=== PATIENT | male | born 1960 | race Caucasian/White ===

== ENCOUNTER 2017-06-14 11:08 | Observation (INO) | payer OTHER ==
--- NOTE | 2017-06-14 11:52 | EDPHY ---
H & P Stated Complaint: pt twisted/hurt back r lower tuesday lifting a lawn aerator - Personal History Current Tetanus/Diphtheria Vaccine: Yes - Medical/Surgical History Hx Asthma: No Hx Chronic Respiratory Disease: No Hx Diabetes: No Hx Cardiac Disease: No Hx Renal Disease: No Hx Cirrhosis: No Hx Alcoholism: No Hx HIV/AIDS: No Hx Splenectomy or Spleen Trauma: No Other PMH: r elbow surg - Social History Smoking Status: Never smoked Time Seen by Provider: 06/14/17 11:49 HPI/ROS: CHIEF COMPLAINT: Acute low back pain HISTORY OF PRESENT ILLNESS: 56-year-old male arrives via private vehicle with his complaining of acute right flank in paraspinous lumbar pain. This pain started the morning after he was lifting a lawn aerate her an air conditioner. At that time he fell no immediate pain. The pain has generally been intractable, pain reduced with oral Valium. No incontinence. No retention. No urinary abnormality. No radiation of symptoms. No abdominal pain. No rash or vesicles. No direct trauma or fall. No saddle anesthesia. No foot drop. No radiculopathy. PRIMARY CARE PROVIDER: Dr. Sheri Rico REVIEW OF SYSTEMS: A ten point review of systems was performed and is negative with the exception of the items mentioned in the HPI PAST MEDICAL & SURGICAL HISTORY: remote history of appendectomy, zoster SOCIAL HISTORY: nonsmoker. No IV drug use. . PHYSICAL EXAM (Prior to examination, patient consented to physical exam, hands were washed and my usual and customary physical exam procedures followed) 1) GENERAL: Well-developed, well-nourished, alert and oriented. Appears to be in no acute distress. 2) HEAD: Normocephalic, atraumatic 3) HEENT: Pupils equal, round, reactive to light bilaterally. Sclera anicteric. Nasopharynx, oropharynx, clear, no lesions. 4) NECK: Full range of motion, no meningeal signs. 5) LUNGS: Clear auscultation bilaterally, no wheezes, no rhonchi, no retractions. 6) HEART: Regular rate and rhythm, no murmur, no heave, no gallop. 7) ABDOMEN: No guarding, no rebound, no focal tenderness, negative McBurney's, negative Marquez's, negative Rovsing's, negative peritoneal sign, 8) MUSCULOSKELETAL: Moving all extremities, no focal areas of tenderness, no obvious trauma. No peripheral edema or discoloration. 9) BACK: tender to palpation paraspinous muscle. No CVA tenderness, no midline vertebral tenderness, no fluctuance, no step-off, no obvious trauma, no visual or palpable abnormality. Patella, Achilles reflexes intact to bilateral strength 5/5 10) SKIN: No rash, no petechiae. 11) NEURO: Awake, alert, and oriented to person, place and time. Answers questions appropriately. There were no obvious focal neurologic abnormalities. No cerebellar dysfunction. Normal steady gait. Upper and lower extremities bilaterally with strength 5 / 5, reflexes 2+.. DIFFERENTIAL DIAGNOSIS: In no particular order, including but not limited to, fracture, sprain/strain, cauda equina, spinal infectious etiology. (Ramona Mcconnell) Constitutional: Initial Vital Signs Temperature (C) 36.6 C 06/14/17 11:23 Heart Rate 58 L 06/14/17 11:23 Respiratory Rate 20 06/14/17 11:23 Blood Pressure 123/80 H 06/14/17 11:23 O2 Sat (%) 97 06/14/17 11:23 O2 Delivery Mode Nasal Cannula O2 (L/minute) 2 Allergies/Adverse Reactions: Sulfa (Sulfonamide Antibiotics) Allergy (Verified 06/14/17 11:23) penicilla Allergy (Uncoded 02/11/17 10:25) sulfa Allergy (Uncoded 02/11/17 10:25) Home Medications: Medication Instructions Recorded Diazepam [Valium 5 MG (*)] 5 mg PO DAILY PRN 06/14/17 Ibuprofen [Motrin (*)] 200 - 600 mg PO DAILY PRN 06/14/17 Multivitamins [Multivitamin (*)] 1 each PO DAILY 06/14/17 Medical Decision Making - Diagnostics Imaging Results: Imaging Impressions Abdomen/Pelvis CT 06/14/17 12:27 Impression: 3.5 mm calculus in the bladder side of the right ureterovesical junction indicating a recently passed stone with moderate right hydronephrosis and hydroureter. There is also nonobstructive nephrolithiasis right kidney. Results called and discussed with Ramona Mcconnell PA-C, at 1323 hours 2016. Attention: This CT examination is specifically designed to evaluate patients who are clinically suspected of having acute obstructive uropathy. This examination does not use radiographic contrast, and as such, provides only a limited evaluation of the abdomen, pelvis and retroperitoneum. If there is further clinical suspicion for pathologic conditions other than obstructive uropathy, a complete CT evaluation of the abdomen and pelvis utilizing intravenous, oral, and rectal contrast should be considered. ED Course/Re-evaluation: 17:[address] Woodall, radiologist. CT shows sacral spine cyst, multiple disc herniations in the lumbar spine. Plan to admit for intractable pain. 17:[address] Suarez. He accepts admission. Spoke with the physician's primary teaching assistant for Dr. Chen. He will consult in the hospital. (Reji Morgan) Care of patient under supervision of secondary supervising physician Dr Morgan. MRI was obtained. Pain control has been challenging in this patient. Care the patient transferred to Dr. Morgan at 5:00 p.m.. (Ramona Mcconnell Malu) - Data Points Laboratory Results: Laboratory Results 06/14/17 13:00 06/14/17 13:00 Medications Given: Discontinued Medications Acetaminophen (Tylenol) 1,000 mg PO TID CARLOS Stop: 12/11/17 21:59 Last Admin: 06/15/17 09:03 Dose: Not Given Diazepam (Valium) 5 mg PO EDNOW ONE Stop: 06/14/17 12:29 Last Admin: 06/14/17 12:53 Dose: 5 mg Fentanyl (Sublimaze) 50 mcg IVP EDNOW ONE Stop: 06/14/17 13:34 Last Admin: 06/14/17 13:52 Dose: 50 mcg Hydromorphone HCl (Dilaudid) 1 mg IVP EDNOW ONE Stop: 06/14/17 14:05 Last Admin: 06/14/17 14:10 Dose: 1 mg Hydromorphone HCl (Dilaudid) 1 mg IVP EDNOW ONE Stop: 06/14/17 15:06 Last Admin: 06/14/17 15:18 Dose: 1 mg Hydromorphone HCl (Dilaudid) 1 mg IVP EDNOW ONE Stop: 06/14/17 17:04 Last Admin: 06/14/17 17:07 Dose: 1 mg Ondansetron HCl (Zofran) 4 mg IVP EDNOW ONE Stop: 06/14/17 17:44 Last Admin: 06/14/17 17:46 Dose: 4 mg Departure - Departure Disposition: [facility] Inpatient Acute Clinical Impression: Intractable pain, Sacral spine cyst Condition: Good
[2017-06-14] MEDS ORDERED: DIAZEPAM 5 MG TAB PO ONE (12:28)
[2017-06-14 13:13] LABS: % IMMATURE GRANULYOCYTES 0.3 % (0.0-1.1); ABSOLUTE IMMATURE GRANULOCYTES 0.03 10^3/uL (0.00-0.10); ADD DIFF? NO; ADD MORPH? NO; ADD SCAN? NO; ATYPICAL LYMPHOCYTE FLAG 0 (0-99); FRAGMENT RBC FLAG 0 (0-99); HEMATOCRIT 46.2 % (40.0-51.0); HEMOGLOBIN 16.5 g/dL (13.7-17.5); LEFT SHIFT FLG 0 (0-99); LIPEMIA HEMOLYSIS FLAG 90 (0-99); MEAN CELL HEMOGLOBIN 30.1 pg (27.9-34.1); MEAN CELL HEMOGLOBIN CONCENTR. 35.7 g/dL (32.4-36.7); MEAN CELL VOLUME 84.2 fL (81.5-99.8); MEAN PLATELET VOLUME 10.2 fL (8.7-11.7); PLATELET CLUMPS FLAG 0 (0-99); PLATELET COUNT 202 10^3/uL (150-400); RED BLOOD CELL COUNT 5.49 10^6/uL (4.40-6.38); RED CELL DISTRIBUTION WIDTH 12.5 % (11.5-15.2)
[2017-06-14 13:33] LABS: COLOR YELLOW; LEUKOCYTE ESTERASE,URINE NEGATIVE (NEGATIVE); NITRITE,URINE NEGATIVE (NEGATIVE)
[2017-06-14 13:33] LABS: ALANINE AMINOTRANSFERASE 44 IU/L (21-72); ALBUMIN 4.2 g/dL (3.5-5.0); ALKALINE PHOSPHATASE 70 IU/L (38-126); ANION GAP 11 mEq/L (8-16); ASPARTATE AMINOTRANSFERASE 32 IU/L (17-59); BILIRUBIN,TOTAL 0.9 mg/dL (0.1-1.4); BILIRUBIN-CONJUGATED 0.3 mg/dL (0.0-0.5); BILIRUBIN-UNCONJUGATED 0.6 mg/dL (0.0-1.1); CALCIUM 9.5 mg/dL (8.5-10.4); CARBON DIOXIDE 23 mEq/l (22-31); CHLORIDE 105 mEq/L (97-110); CREATININE 1.1 mg/dL (0.7-1.3); GLOMERULAR FILTRATION RATE > 60; GLUCOSE 82 mg/dL (70-100); POTASSIUM 4.7 mEq/L (3.5-5.2); SODIUM 139 mEq/L (134-144); TOTAL PROTEIN 7.6 g/dL (6.3-8.2)
[2017-06-14] MEDS ORDERED: fentaNYL 100 MCG/2 ML INJ IVP ONE (13:33)
[2017-06-14 13:34] LABS: MUCUS TRACE /lpf (NONE-1+); RBC,URINE 25-50 /hpf (0-3)
[2017-06-14] MEDS ORDERED: HYDROmorphONE/DILAUDID 1 MG/ML INJ IVP ONE ×3 (14:04→17:03)
[2017-06-14] MEDS ORDERED: GADOBUTROL 10 ML VIAL IVP ONE (16:02)
[2017-06-14] MEDS ORDERED: ONDANSETRON 4 MG/2 ML VIAL IVP ONE (17:43)
[2017-06-14] MEDS ORDERED: ONDANSETRON 4 MG/2 ML VIAL ONE (17:44)
[2017-06-14] MEDS ORDERED: HYDROmorphONE/DILAUDID 6 MG/30 ML PCA IV PRN ×2 (18:12→20:25)
[2017-06-14] MEDS ORDERED: NALOXONE HCL 0.4 MG/ML INJ IVP PRN ×2 (18:12→20:25)
[2017-06-14] MEDS ORDERED: DIAZEPAM 10 MG/2 ML SYR IVP PRN (18:13)
[2017-06-14] MEDS ORDERED: ACETAMINOPHEN 325 MG TAB PO PRN (18:14)
[2017-06-14] MEDS ORDERED: ONDANSETRON DISINTEGRATING 4 MG TAB PO PRN (18:14)
[2017-06-14] MEDS ORDERED: ONDANSETRON 4 MG/2 ML VIAL IVP PRN (18:14)
--- NOTE | 2017-06-14 18:49 | GHP ---
[f rep st] HISTORY AND PHYSICAL DATE OF ADMISSION: 06/14/2017 CHIEF COMPLAINT: Back pain. HISTORY OF PRESENT ILLNESS: This is a 56-year-old man, who has about a 2-month history of low back p ain. He has no lower extremity weakness, no numbness, no difficulty with urination. He actually has an appointment to see Dr. Jean Baptiste tomorrow. On Tuesday, however, he was carrying an air conditioner and fe ll. He did not really have any back pain after that. He then picked up another air conditioner, alejandroolena ch was 50 or 60 pounds, and carried that. He felt fine afterwards. Tuesday morning he woke up in ext deedee pain. He took significant Advil and Tylenol, this did not help. He had some Valium from a prev ious surgery, which he took, which did help the pain slightly. Pain got worse and, thus, he presente d to the ED today. PAST MEDICAL/SURGICAL HISTORY: 1. Elbow surgery. 2. Zoster. 3. Appendectomy. MEDICATIONS: Please see medication reconciliation. ALLERGIES: Sulfa and penicillin. FAMILY HISTORY: No spinal tumors. SOCIAL HISTORY: Lives with his . Rarely drinks. Does not smoke. REVIEW OF SYSTEMS: A 10-point review of systems is conducted and is negative except per HPI. PHYSICAL EXAMINATION: VITAL SIGNS: Blood pressure 118/78, heart rate 58, respiration rate 18, satur ating 97% on 2 L. GENERAL: The patient is a pleasant man, who is resting comfortably in bed, in no acute distress. HEENT: Shows him to be normocephalic, atraumatic. CARDIOVASCULAR: Regular rate an d rhythm. No murmurs, rubs, or gallops. PULMONARY: Shows lungs clear to auscultation bilaterally. ABDOMEN: Soft, nontender, nondistended. SKIN: Shows no rash. : Shows no Villatoro. NEUROLOGIC: Shows him to be alert and oriented x3. Cranial nerves 2-12 are intact. Strength is 5/5 in his upper and lower extremities. Sensation to light touch is intact in his upper and lower extremities. PSYC HIATRIC: Shows a normal mood and affect. LABORATORY DATA: CBC is normal. Basic metabolic panel and LFTs are normal. Urinalysis shows a smal l amount of blood. DATA: 1. I discussed this with Dr. Morgan in the ED. 2. Abdominal and pelvic CT shows a stone in his bladder with moderate right hydronephrosis and right hydroureter. He has nonobstructive left-sided nephrolithiasis. 3. Lumbar spine MRI shows a benign-appearing cystic osseous lesion in the left sacral ala, S1, multi ple-level degenerative disk disease. No diskitis or osteomyelitis. IMPRESSION AND PLAN: A 56-year-old man who presents with back pain, a bony cystic lesion, right hydr onephrosis and hydroureter. 1. Back pain: Unclear if this is muscle spasm, related to his hydronephrosis. I do not think it is related to the bony cyst that was identified. We will treat him with patient-controlled anesthesia, as well as Valium, schedule Tylenol. 2. Osseous cystic lesion: Neurosurgery is consulted. This will need to be biopsied. They are purs uing a CT scan of the lumbar spine to get a better look at the bones overall. He is neurologically i ntact. 3. Right hydronephrosis and hydroureter: Appears as though he has passed a stone. He would need to have this followed as an outpatient if his pain resolves. If not, could consider ultrasound to foll ow his right kidney. /[id number]/MODL
[2017-06-14] MEDS: ACETAMINOPHEN 500 MG TAB PO SCH (22:25)
[2017-06-15 05:25] LABS: % IMMATURE GRANULYOCYTES 0.3 % (0.0-1.1); ABSOLUTE IMMATURE GRANULOCYTES 0.02 10^3/uL (0.00-0.10); ADD DIFF? NO; ADD MORPH? NO; ADD SCAN? NO; ATYPICAL LYMPHOCYTE FLAG 0 (0-99); FRAGMENT RBC FLAG 0 (0-99); HEMATOCRIT 43.4 % (40.0-51.0); HEMOGLOBIN 15.4 g/dL (13.7-17.5); LEFT SHIFT FLG 0 (0-99); LIPEMIA HEMOLYSIS FLAG 90 (0-99); MEAN CELL HEMOGLOBIN CONCENTR. 35.5 g/dL (32.4-36.7); MEAN CELL VOLUME 84.6 fL (81.5-99.8); MEAN PLATELET VOLUME 10.5 fL (8.7-11.7); PLATELET CLUMPS FLAG 10 (0-99); PLATELET COUNT 168 10^3/uL (150-400); RED BLOOD CELL COUNT 5.13 10^6/uL (4.40-6.38); RED CELL DISTRIBUTION WIDTH 12.2 % (11.5-15.2)
--- NOTE | 2017-06-15 05:36 | GCON ---
[f rep st] CONSULTATION EMERGENCY ROOM CONSULTATION DATE OF CONSULTATION: 06/14/2017 CHIEF COMPLAINT: Severe right lower back pain. HISTORY OF PRESENT ILLNESS: Patient is a 56-year-old gentleman, who presented to the emergency room with a 2-month history of lower back pain. Two days ago he was lifting an aerator and has experienced severe right lower back pain since. He denies any radicular symptoms. He denies any weakness, and he denies any saddle anesthesia or numbness. He denies any bowel or bladder issues other than trouble urinating due to pain. He has taken ibuprofen without any relief. He had some Valium from a previous arm surgery, which he took 5 mg, which did decrease the severity of his pain slightly. PAST MEDICAL HISTORY: Patient has a history of left ear shingles in 2016. PAST SURGICAL HISTORY: Elbow surgery and appendectomy. MEDICATIONS: Patient does not take any medicines on a regular basis. ALLERGIES: Patient is allergic to sulfa and penicillin. FAMILY HISTORY: Patient states that both his mother and father when he was a young age. His mother during surgery for removing of a cyst on her neck, which was believed to be due to anesthesia complication. Patient denies ever having anesthesia complication. SOCIAL HISTORY: Patient lives with his . He drinks approximately 1/2 of a beer 3-4 times per week. He does not smoke cigarettes. He does not do drugs. REVIEW OF SYSTEMS: Ten-point review of systems was reviewed and negative aside for what was mentioned in HPI. PHYSICAL EXAMINATION: VITAL SIGNS: Blood pressure is 118/78, heart rate is 58 , respiratory rate is 18, oxygen saturations 97% on 2 L nasal cannula, temperature is 36.6 degrees Celsius. HEENT: Head is normocephalic and atraumatic. Pupils are equal, round, and reactive to light. EOMI is intact. Full visual patel by confrontation. Ears are patent. Nose is patent. RESPIRATORY: Deferred. CARDIAC: Deferred. ABDOMEN: Soft and nontender. GENITOURINARY: Deferred. RECTAL: Deferred. NEUROLOGIC: Patient is awake and alert and oriented to name, place, location, date, time, and situation. His memory is intact to immediate, past, and current events. Speech shows no aphasia or dysphonia. Cranial nerves 2-12 are grossly intact. Motor: Patient has 5/5 strength in all muscle groups in bilateral upper and lower extremities to include deltoids, biceps, triceps, brachioradialis, wrist flexion and extension, service observer, intrinsic fingers, iliopsoas, quadriceps, hamstrings, plantar flexion, dorsiflexion, EHL testing. Sensation is grossly intact to light touch throughout all dermatomal distributions in bilateral lower extremities. Patient has a negative straight leg raise. Negative GLORIA test. Reflexes: Biceps, triceps, brachioradialis, knee jerk, and ankle jerk are 2+ out of 4. Toes are downgoing bilaterally. Darshan sign is negative. Babinski is negative, and there is no evidence of clonus. LABORATORY DATA: White blood cells are 9.29, hemoglobin 16.5, hematocrit 46.2, platelets are 202. DIAGNOSTICS: CT scan of the abdomen and pelvis without contrast demonstrated a 2.5 mm calculus in the bladder side of the right ureter, which could indicate a recently passed kidney stone. MRI of the lumbar spine demonstrates a benign- appearing cystic osseous lesion involving the left sacral S1 region measuring 4 x 3 x 3.7 cm. Patient also has multilevel okrh-yl-tihohufr degenerative disk disease from T11 through S1 with small central disk herniations noted at T12-L1 , L1-2 L2-L3, L3-L4, and L4-L5 levels. ASSESSMENT AND PLAN: Patient is a 56-year-old male presenting to the emergency room with severe right lower back pain. MRI of the lumbar spine was found to have a benign-appearing osseous lesion in the left S1 sacral region. It is unlikely that this lesion is contributing to his right lower back pain. We will order a biopsy of this mass to further evaluate. Patient has multi-level degeneration of his lumbar.Patient is being admitted to the medicine team for pain control in the hospital. Of note, the patient was scheduled to see Dr. Kumar in the office for his lower back pain tomorrow June 15. We will follow him in the hospital and follow the evaluation of his biopsy results. Patient was seen and examined in the Emergency Department at 1745 on 06/14/[address] Andino. /[id number]/MODL MTDD
[2017-06-15 05:37] LABS: ALANINE AMINOTRANSFERASE 40 IU/L (21-72); ALBUMIN 3.5 g/dL (3.5-5.0); ALKALINE PHOSPHATASE 60 IU/L (38-126); ANION GAP 10 mEq/L (8-16); ASPARTATE AMINOTRANSFERASE 23 IU/L (17-59); BILIRUBIN,TOTAL 1.1 mg/dL (0.1-1.4); CALCIUM 8.9 mg/dL (8.5-10.4); CARBON DIOXIDE 24 mEq/l (22-31); CHLORIDE 106 mEq/L (97-110); CREATININE 1.1 mg/dL (0.7-1.3); GLOMERULAR FILTRATION RATE > 60; GLUCOSE 85 mg/dL (70-100); POTASSIUM 4.1 mEq/L (3.5-5.2); SODIUM 140 mEq/L (134-144); TOTAL PROTEIN 6.4 g/dL (6.3-8.2)
[2017-06-15 07:57] VITALS: RESP 18
--- NOTE | 2017-06-15 08:08 | NEUSURGPN ---
Assessment/Plan: 56 yr old with right low back pain, incidental left sacral mass seen on lumbar MRI Plan: -Patient pain improved overnight, did not require pain medications -Lumbar MRI has multi-level degenerative disease, could contribute to right low back pain, kidney stone could also contribute to back pain -Patient and are interested in further evaluation renal stones if indicated , will defer to Medicine for work up -Sacral mass was scheduled for biopsy this morning, will cancel this. Possibility of mass being Chrondroma, patient will obtain images on CD and travel to Dr Radha Sarmiento at [facility] for an opinion on treatment plan. -Patient my discharge from neurosurgery standpoint and follow up in office Patient was seen by Dr Kumar as well and plan was fully discussed Subjective: Patient pain improved this am, has not ambulated yet Objective: AxO x3 PERRLA EOMI 5/5 BLE, BUE Sensation intact to light touch BLE Neuro Check Frequency: per routine Urinary Catheter in Place: No - Physician Discussed Patient with Dr.: Andino Patient Seen by : José Neurosurgery Physical Exam - Vitals, I&O, Labs I and O 06/14/17 06/15/17 06/16/17 05:59 05:59 05:59 Intake Total 0 300 Output Total 700 Balance 0 -400 Weight 90.718 kg Intake: Oral (ml) 300 IV Infused (ml) 0 HYDROmorphone HCL See 0 Protocol IV PRN PRN Rx#: [id number] Output: Urine (ml) 700 Urinal 700 Vital Signs Temp Pulse Resp BP Pulse Ox 36.7 C 59 L 18 109/75 96 06/15/17 07:55 06/15/17 07:55 06/15/17 07:55 06/15/17 07:55 06/15/17 07:55 Laboratory Results 06/15/17 05:02 06/15/17 05:02 ICD10 Worksheet Patient Problems: Problems Problem Status Onset Intractable pain Acute
[2017-06-15] MEDS: ACETAMINOPHEN 500 MG TAB PO SCH (09:03)
[2017-06-15 12:23] VITALS: BP 109/67; PULSE 64; TEMP 98.6; O2SAT 93
--- NOTE | 2017-06-15 13:44 | PDDCSUM ---
Discharge Summary Discharge Summary: DISCHARGE DIAGNOSES: -acute right-sided kidney stone with hydronephrosis and renal colic, past history of kidney stones of unknown nature -osseous cystic lesion of the sacral Ala, unknown etiology incidentally identified radiologically CONSULTANTS: Dr. Ulises Kumar PROCEDURES: CT scan of abdomen pelvis MRI scan of lumbosacral spine HOSPITAL COURSE SUMMARY: This patient presented with acute typical renal colic on the right side was found to have right-sided hydronephrosis and a 3.5 cm stone in his bladder along with a 2 mm stone in the inferior pole the right kidney. His pain did resolve around the time that he had his CT done. He is presumed to have passed the stone in his bladder yesterday. There were no fevers no other signs of infection. He at this time is eating well and up walking around feeling comfortable. He is stable for discharge to home. He has 1 previous kidney stone which he did not find and so it was never analyzed. It is recommended at this time that he have vigorous daily hydration as well as a low oxalate diet. He is given a urine strainer to see if he can catch his stone for analysis. It is recommended to have follow-up with his primary care physician or other urologists to make sure that his hydroureter does resolve. Incidentally identified on his CT scan in the ER was a cystic lesion in the sacral alae on the right side. This is of uncertain etiology and significance at this time. He was seen by Dr. Kumar who recommended consideration of possible biopsy but is recommended that the patient seek out a 2nd opinion at the [facility] and the patient is given the name of the surgeon to follow up with therapy. The patient understands this and agrees on this plan PENDING TEST RESULTS: None MEDICATION CHANGES: None FOLLOW-UP PLAN: With primary care physician With Dr. Liana Sarmiento at [facility] Greater than 35 minutes bedside and care coordination time today
--- NOTE | 2017-06-15 16:03 | ASDISCHSUM ---
Discharge Information Plan Status: Medically Cleared to Leave: Discharge Date:06/15/2017 02:11 PM CM D/C Disposition: ADT D/C Disposition:Home, Routine, Self-Care Projected Discharge Date:06/15/2017 02:11 PM Transportation at D/C: Discharge Delay Reason: Follow-Up Date:06/15/2017 02:11 PM Discharge Slot: Final Diagnosis: Placement Information Patient Contact Information Contact Name:RACHAEL Relationship: Address:[address] City:[place] Alternate Phone: State/Zip Code:[place] [address] Email: Financial Information Financial Class:HMO and PPO Plans Primary Plan Desc:[facility] Primary Plan Number:[id number] Secondary Plan Desc: Secondary Plan Number: Assessment Information Intervention Information
== END 2017-06-15 14:11 | disposition home or self-care (01) ==
LOC: F1N 17:25
PROVIDERS: ADMIT Student in an Organized Health Care Education/Training Program; ATTEND Internal Medicine
DX: S39.012A Strain of muscle, fascia and tendon of lower back, initial encounter (principal); X50.0XXA Overexertion from strenuous movement or load, initial encounter; Y92.009 Unspecified place in unspecified non-institutional (private) residence as the place of occurrence of the external cause; Y93.H9 Activity, other involving exterior property and land maintenance, building and construction; G96.19 Other disorders of meninges, not elsewhere classified; M51.26 Other intervertebral disc displacement, lumbar region; N20.0 Calculus of kidney
CPT/HCPCS: 72158; 74176; 96374; 96375; 96376; 99285; G0378; A9585; J1170; J2405; J3010

== ENCOUNTER 2017-06-16 08:48 | Emergency (ER) | payer OTHER ==
[2017-06-16 08:54] VITALS: TEMP 97.9
[2017-06-16] MEDS ORDERED: KETOROLAC 30 MG/1 ML SDV IVP ONE (09:16)
--- NOTE | 2017-06-16 09:16 | EDPHY ---
HPI/HX/ROS/PE/MDM Narrative: CHIEF COMPLAINT: Right flank pain HPI: The patient is a 56 y/o male arriving with his complaining of severe right flank pain. He was admitted 2 days ago for the same pain and a CT revealed a stone in his bladder and moderate right hydronephrosis and hydroureter. He was discharged home yesterday after his pain subsided. This morning he stood and "got a stitch in my side," which then progressed to the same severe pain as two days ago. He has been taking some old Valium with only slight alleviation. No change with positioning. He does have a history of chronic low back pain, but states this feels much different. REVIEW OF SYSTEMS: Aside from elements discussed in the HPI, a comprehensive 10-point review of systems was reviewed and is negative. PMH: Elbow surgery, zoster, appendectomy, lower back pain and cystic osseous lesion SOCIAL HISTORY: Lives with . Rare alcohol. Nonsmoker. PHYSICAL EXAM: General:Patient is alert, in no acute distress. ENT:Eyes are normal to inspection. ENT inspection normal. Neck: Normal inspection. Full range of motion. Respiratory:No respiratory distress. Breath sounds normal bilaterally. Cardiovascular: Regular rate and rhythm. Strong peripheral pulses. Normal cap refill. Abdomen:The abdomen is nontender to palpation. There are no peritoneal signs. Back: Normal to inspection. Right CVA tenderness to palpation. Skin: Normal color. No rash. Warm and dry. Extremities: Normal appearance. Full range of motion. Neuro: Oriented x3. Normal motor function. Normal sensory function. ED Course: This is a 56 y/o male with a history of chronic back pain and recent kidney stone who presents with returning left flank pain this morning. His pain feels exactly the same as his stone from 2 days ago. He says he was not discharged with pain medications and has only been taking Valium for pain. He has left CVA tenderness on exam. Plan for IV, labs, and symptom management. 30mg IV Toradol administered. 1020: Reassessed patient. We discussed repeating the CT study to evaluate for another stone or other cause of his symptoms. He has decided to repeat the study. CT shows the distal ureteral stone has not moved from 2 days ago. Consulted with Dr. Barreto, urology. He does not recommend any intervention at this time. Discussed this recommendation with the patient. MDM: This patient presents with recurrent pain likely secondary to hydronephrosis/ kidney stone. Repeat CT shows continued active stone at the UVJ. Patient's pain well-controlled with IV Toradol. They feel comfortable going home with strict return precautions. - Data Points Imaging Results: Imaging Impressions Abdomen/Pelvis CT 06/16/17 10:20 Impression: 1. Stable lower pole right nephrolithiasis. 2. Persistent moderate right hydroureteronephrosis with a 3.5 mm calculus seen in the posterior right aspect of the urinary bladder, slightly more distant from the ureterovesical junction than on the study of 06/14/2017. 3. Status post appendectomy. Attention: This CT examination is specifically designed to evaluate patients who are clinically suspected of having acute obstructive uropathy. This examination does not use radiographic contrast, and as such, provides only a limited evaluation of the abdomen, pelvis, and retroperitoneum. If there is further clinical suspicion for pathological conditions other than obstructive uropathy, a complete CT evaluation of the abdomen and pelvis utilizing intravenous, oral, and rectal contrast should be considered. Findings were discussed with Chico Platt MD at 10:59, on 06/16/2017. Imaging: Discussed imaging studies w/ call center agent Radiologist, I viewed and interpreted images myself Laboratory Results: Laboratory Results 06/16/17 09:05 06/16/17 09:05 06/16/17 06/16/17 09:05 09:05 WBC 10.54 10^3/uL H 10^3/uL (3.80-9.50) RBC 5.67 10^6/uL 10^6/uL (4.40-6.38) Hgb 17.3 g/dL g/dL (13.7-17.5) Hct 48.3 % % (40.0-51.0) MCV 85.2 fL fL (81.5-99.8) MCH 30.5 pg pg (27.9-34.1) MCHC 35.8 g/dL g/dL (32.4-36.7) RDW 12.3 % % (11.5-15.2) Plt Count 201 10^3/uL 10^3/uL (150-400) MPV 10.9 fL fL (8.7-11.7) Neut % (Auto) 79.1 % H % (39.3-74.2) Lymph % (Auto) 10.7 % L % (15.0-45.0) [place] % (Auto) 8.3 % % (4.5-13.0) Eos % (Auto) 1.2 % % (0.6-7.6) Baso % (Auto) 0.4 % % (0.3-1.7) Nucleat RBC Rel Count 0.0 % % (0.0-0.2) Absolute Neuts (auto) 8.34 10^3/uL H 10^3/uL (1.70-6.50) Absolute Lymphs (auto) 1.13 10^3/uL 10^3/uL (1.00-3.00) Absolute Monos (auto) 0.87 10^3/uL H 10^3/uL (0.30-0.80) Absolute Eos (auto) 0.13 10^3/uL 10^3/uL (0.03-0.40) Absolute Basos (auto) 0.04 10^3/uL 10^3/uL (0.02-0.10) Absolute Nucleated RBC 0.00 10^3/uL 10^3/uL (0-0.01) Immature Gran % 0.3 % % (0.0-1.1) Immature Gran # 0.03 10^3/uL 10^3/uL (0.00-0.10) Sodium 140 mEq/L mEq/L (134-144) Potassium 4.3 mEq/L mEq/L (3.5-5.2) Chloride 103 mEq/L mEq/L (97-110) Carbon Dioxide 26 mEq/l mEq/l (22-31) Anion Gap 11 mEq/L mEq/L (8-16) BUN 16 mg/dL mg/dL (7-23) Creatinine 1.2 mg/dL mg/dL (0.7-1.3) Estimated GFR > 60 Glucose 83 mg/dL mg/dL (70-100) Calcium 9.7 mg/dL mg/dL (8.5-10.4) Medications Given: Discontinued Medications Ketorolac Tromethamine (Toradol) 30 mg IVP EDNOW ONE Stop: 06/16/17 09:17 Last Admin: 06/16/17 09:41 Dose: 30 mg General Initial Vital Signs: Initial Vital Signs Temperature (C) 36.6 C 06/16/17 08:52 Heart Rate 68 06/16/17 08:52 Respiratory Rate 18 06/16/17 08:52 Blood Pressure 113/74 06/16/17 08:52 O2 Sat (%) 95 06/16/17 08:52 O2 Delivery Mode Room Air Allergies/Adverse Reactions: Sulfa (Sulfonamide Antibiotics) Allergy (Verified 06/16/17 08:51) penicilla Allergy (Uncoded 02/11/17 10:25) sulfa Allergy (Uncoded 02/11/17 10:25) Home Medications: Medication Instructions Recorded Diazepam [Valium 5 MG (*)] 5 mg PO DAILY PRN 06/14/17 Ibuprofen [Motrin (*)] 200 - 600 mg PO DAILY PRN 06/14/17 Multivitamins [Multivitamin (*)] 1 each PO DAILY 06/14/17 Ketorolac Tromethamine [Toradol] 10 mg PO Q6H #16 tab 06/16/17 Ondansetron Odt [Zofran Odt] 4 mg PO Q4PRN PRN #10 tab 06/16/17 Tamsulosin HCl [Flomax] 0.4 mg PO DAILY #10 cap 06/16/17 oxyCODONE/APAP 5/325 [Percocet 1 - 2 tab PO Q4H PRN #10 tab 06/16/17 5/325] Departure - Departure Disposition: Home, Routine, Self-Care Clinical Impression: Kidney stone Condition: Good Instructions: Kidney Stones (ED) Additional Instructions: 1. Take Toradol as prescribed. 2. Percocet as needed for severe pain 3. Use Flomax as prescribed. 4. Strain urine as directed 5. Return to the Emergency Department for intractable pain, fever or vomiting 6. Please contact the urologist you have been referred to schedule a follow-up visit. Referrals: Sheri Rico MD [Primary Care Provider] - As per Instructions Pablo Barreto MD [Medical Doctor] - As per Instructions Prescriptions: Ketorolac Tromethamine [Toradol] 10 mg PO Q6H #16 tab Ondansetron Odt [Zofran Odt] 4 mg PO Q4PRN PRN #10 tab PRN Reason: Nausea oxyCODONE/APAP 5/325 [Percocet 5/325] 1 - 2 tab PO Q4H PRN #10 tab PRN Reason: Pain, Severe Tamsulosin HCl [Flomax] 0.4 mg PO DAILY #10 cap Report Scribed for: Chico Platt Report Scribed by: Dilma Caro Date of Report: 06/16/17 Time of Report: 09:00 Physician Review and Approval Statement: Portions of this note were transcribed by an ED scribe. I personally performed the history, physical exam, and medical decision making; and confirm the accuracy of the information in the transcribed note.
[2017-06-16 10:00] LABS: % IMMATURE GRANULYOCYTES 0.3 % (0.0-1.1); ABSOLUTE IMMATURE GRANULOCYTES 0.03 10^3/uL (0.00-0.10); ADD DIFF? NO; ADD MORPH? NO; ADD SCAN? NO; ATYPICAL LYMPHOCYTE FLAG 10 (0-99); FRAGMENT RBC FLAG 0 (0-99); HEMATOCRIT 48.3 % (40.0-51.0); HEMOGLOBIN 17.3 g/dL (13.7-17.5); LEFT SHIFT FLG 0 (0-99); LIPEMIA HEMOLYSIS FLAG 90 (0-99); MEAN CELL HEMOGLOBIN 30.5 pg (27.9-34.1); MEAN CELL HEMOGLOBIN CONCENTR. 35.8 g/dL (32.4-36.7); MEAN CELL VOLUME 85.2 fL (81.5-99.8); MEAN PLATELET VOLUME 10.9 fL (8.7-11.7); PLATELET CLUMPS FLAG 0 (0-99); PLATELET COUNT 201 10^3/uL (150-400); RED BLOOD CELL COUNT 5.67 10^6/uL (4.40-6.38); RED CELL DISTRIBUTION WIDTH 12.3 % (11.5-15.2)
[2017-06-16 10:07] LABS: ANION GAP 11 mEq/L (8-16); CALCIUM 9.7 mg/dL (8.5-10.4); CARBON DIOXIDE 26 mEq/l (22-31); CHLORIDE 103 mEq/L (97-110); CREATININE 1.2 mg/dL (0.7-1.3); GLOMERULAR FILTRATION RATE > 60; GLUCOSE 83 mg/dL (70-100); POTASSIUM 4.3 mEq/L (3.5-5.2); SODIUM 140 mEq/L (134-144)
[2017-06-16 11:32] VITALS: BP 108/65; PULSE 60; RESP 16; O2SAT 92
== END 2017-06-16 12:06 | disposition home or self-care (01) ==
DX: N20.0 Calculus of kidney (principal)
CPT/HCPCS: 96374; J1885

== ENCOUNTER 2017-10-06 15:33 | Emergency (ER) | payer OTHER ==
[2017-10-06 16:18] VITALS: BP 128/75; PULSE 63; RESP 16; TEMP 97.7; O2SAT 97
--- NOTE | 2017-10-06 17:25 | EDPHY ---
HPI/HX/ROS/PE/MDM Narrative: CHIEF COMPLAINT: Diarrhea for 3 weeks HISTORY OF PRESENT ILLNESS: The patient is a 57 y/o male complaining of persistent diarrhea for the last 3 weeks that began while on a medical trip in [facility] last month. While in [facility] he developed what he thinks was a drug reaction to antimalarial medication Malarone. He had a diffuse pruritic rash, bilateral leg swelling, nausea, and and bloody diarrhea. He had previously developed a rash and mild diarrhea when taking this medication during prior use so he discontinued it and the rash started to improve. His diarrhea persisted so the medical staff he was with gave him azithromycin. He was unable to continue this due to symptoms, so he was switched to a 5-day course of Ciprofloxacin due to concern for cholera and 28-day course of doxycycline for malaria prophylaxis. The bloody diarrhea resolved after 2-3 days of being on the Cipro. He never had an associated fever. He is continuing to have 3-4 episodes of diarrhea daily and describes his stool as non-bloody, but orange in color. He has associated intermittent mild abdominal cramping, nausea, and appetite loss. He has not vomited. He has an appointment with infectious disease next week and came to the ED today for malaria and c.difficile testing. REVIEW OF SYSTEMS: Constitutional: No fever, no chills Eyes: No visual changes ENT: No sore throat Respiratory: No cough, no shortness of breath Cardiac: No chest pain Gastrointestinal: see HPI Genitourinary: No hematuria, no dysuria Musculoskeletal: see HPI Skin: see HPI Neurological: No headache, no numbness, no weakness Psychiatric: No depression PMH includes: 1. Appendectomy 2. Kidney stones SOCIAL HISTORY: Lives in [place]. . Employed. EXAM: General Appearance: Alert, nontoxic, pleasant Eyes: Pupils equal and round, no conjunctival pallor or injection ENT, Mouth: Mucous membranes moist Neck: Normal inspection Respiratory: Lungs are clear to auscultation Cardiovascular: Regular rate and rhythm Gastrointestinal: Abdomen is soft and non-tender Neurological: A&O, nonfocal, normal gait Skin: Warm and dry, scaly rash on right lumbar area with very mild erythema Extremities: Nontender, no pedal edema Psychiatric: Mood and affect normal ED Course: This is a normally healthy 57 y/o male presenting with a 3-week history of diarrhea that began while in [facility]. Well-appearing and well hydrated. He completed a 5-day course of Cipro and is in the middle of a 28-day course of Doxycycline for this without resolution of his diarrhea. He is afebrile with a benign abdominal exam here. Symptoms could represent c.difficile, cholera or other tropical infectious disease. May also be secondary to abx. Plan for labs including malaria screen, stool sample, and GI pathogen panel. I've recommended loperamide and standard diarrhea care instructions. He already has appointment arranged with ID for next week which I've advised him to keep. He understands he should call back tomorrow for lab results, though we will contact him with any abnormal results as well. Return precautions discussed. He is comfortable with this plan. MDM: includes though not limited to severe dehydration, Cdif colitis, cholera, medication side effect, viral. - Data Points Imaging: I viewed and interpreted images myself Laboratory Results: Laboratory Results 10/06/17 17:53 10/06/17 10/06/17 17:53 17:53 WBC 5.24 10^3/uL 10^3/uL (3.80-9.50) RBC 5.90 10^6/uL 10^6/uL (4.40-6.38) Hgb 17.9 g/dL H g/dL (13.7-17.5) Hct 49.3 % % (40.0-51.0) MCV 83.6 fL fL (81.5-99.8) MCH 30.3 pg pg (27.9-34.1) MCHC 36.3 g/dL g/dL (32.4-36.7) RDW 12.1 % % (11.5-15.2) Plt Count 223 10^3/uL 10^3/uL (150-400) MPV 10.6 fL fL (8.7-11.7) Neut % (Auto) 41.8 % % (39.3-74.2) Lymph % (Auto) 42.4 % % (15.0-45.0) [place] % (Auto) 9.7 % % (4.5-13.0) Eos % (Auto) 4.2 % % (0.6-7.6) Baso % (Auto) 1.7 % % (0.3-1.7) Nucleat RBC Rel Count 0.0 % % (0.0-0.2) Absolute Neuts (auto) 2.19 10^3/uL 10^3/uL (1.70-6.50) Absolute Lymphs (auto) 2.22 10^3/uL 10^3/uL (1.00-3.00) Absolute Monos (auto) 0.51 10^3/uL 10^3/uL (0.30-0.80) Absolute Eos (auto) 0.22 10^3/uL 10^3/uL (0.03-0.40) Absolute Basos (auto) 0.09 10^3/uL 10^3/uL (0.02-0.10) Absolute Nucleated RBC 0.00 10^3/uL 10^3/uL (0-0.01) Immature Gran % 0.2 % % (0.0-1.1) Immature Gran # 0.01 10^3/uL 10^3/uL (0.00-0.10) Sodium Pending Potassium Pending Chloride Pending Carbon Dioxide Pending Anion Gap Pending BUN Pending Creatinine Pending Estimated GFR Pending Glucose Pending Calcium Pending Total Bilirubin Pending Conjugated Bilirubin Pending Unconjugated Bilirubin Pending AST Pending ALT Pending Alkaline Phosphatase Pending Total Protein Pending Albumin Pending Lipase Pending Malaria Smear Pending Malaria Sm Path Review Pending General Time Seen by Provider: 10/06/17 16:44 Initial Vital Signs: Initial Vital Signs Temperature (C) 36.5 C 10/06/17 16:14 Heart Rate 63 10/06/17 16:14 Respiratory Rate 16 10/06/17 16:14 Blood Pressure 128/75 H 10/06/17 16:14 O2 Sat (%) 97 10/06/17 16:14 O2 Delivery Mode Room Air Allergies/Adverse Reactions: Penicillins Allergy (Verified 10/06/17 16:13) Sulfa (Sulfonamide Antibiotics) Allergy (Verified 10/06/17 16:13) penicilla Allergy (Uncoded 10/06/17 16:13) sulfa Allergy (Uncoded 10/06/17 16:13) Home Medications: Medication Instructions Recorded Doxycycline Hyclate 10/06/17 Departure - Departure Disposition: Home, Routine, Self-Care Clinical Impression: Diarrhea Qualifiers: Diarrhea type: infectious Qualified Code(s): A09 - Infectious gastroenteritis and colitis, unspecified Condition: Good Instructions: Loperamide (By mouth), Acute Diarrhea (ED) Additional Instructions: 1. Clear liquids for 24 hours. 2. Advance diet as tolerated. I suggest the BRAT diet to start: bananas, rice, applesauce and toast. 3. Return for worsening symptoms, abdominal pain, any concerns. 4. Follow up with Dr. Marc as planned. 5. Call the ED tomorrow and ask to speak with the charge nurse to get your lab results. Referrals: Sheri Rico MD [Primary Care Provider] - As per Instructions Fredis Marc MD [Medical Doctor] - As per Instructions Report Scribed for: Dominique Brown Report Scribed by: Dilma Caro Date of Report: 10/06/17 Time of Report: 17:39 Physician Review and Approval Statement: Portions of this note were transcribed by a medical cash poster. I personally performed a history, physical exam, medical decision making, and confirmed accuracy of information the transcribed note.
[2017-10-06 18:10] LABS: PLATELET COUNT 223 10^3/uL (150-400)
[2017-10-06 20:12] LABS: MALARIAL PREP NONE SEEN (NONE SEEN)
== END 2017-10-06 18:04 | disposition home or self-care (01) ==
DX: A09 Infectious gastroenteritis and colitis, unspecified (principal)